=== PATIENT | female | born 1980 | race African-American/Black ===

== ENCOUNTER 2018-07-08 06:51 | Emergency (ER) | payer OTHER ==
[2018-07-08 07:03] VITALS: BP 116/73; PULSE 92; TEMP 97.4; BMI 41.1
[2018-07-08] MEDS ORDERED: MECLIZINE HCL 25 MG TABLET (FP) PO ONE (07:21)
[2018-07-08] MEDS ORDERED: SODIUM CHLORIDE 1,000 ML IV STA (07:21)
[2018-07-08] MEDS ORDERED: MECLIZINE HCL 25 MG TABLET (FP) ONE (07:30)
--- NOTE | 2018-07-08 08:53 | PDOC ---
History of Present Illness - General Chief Complaint: Nausea/Vomiting Stated Complaint: N/V/D Time Seen by Provider: 07/08/18 07:20 - History of Present Illness Initial Comments: 07/08/18 09:03 Chief complaint: Dizziness History of present illness: Patient awoke this morning with dizziness described as a spinning sensation, aggravated by movement, and accompanied by nausea and one episode of vomiting. Review of systems: No fever/chills, recent URI symptoms, headache, earache, tinnitus, or decreased hearing, chest pain, shortness of breath, abdominal pain , hematemesis, melena, bloody stool, visual or focal neurologic symptoms, unsteadiness of gait Past medical history: Healthy female, no medical or surgical problems, no medications Social history: No tobacco alcohol or drugs. 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 Denies , has an IUD, no menses. Family history: Reviewed and noncontributory including early coronary artery disease, metabolic disease including diabetes, stroke, PVD, lung disease Physical exam: Alert and oriented well-developed well-nourished moderate distress due to vertigo and nausea Afebrile, vital signs normal PERRLA 4 mm, fundi benign with sharp disc margins and good central venous pulsations. ENT clear. Neck supple without bruit mass or nodes Lungs clear, full breath sounds bilaterally, no wheezes rales or rhonchi CV S1 and S2 normal without murmur rub or gallop pulses full and symmetric no JVD or edema no bruits regular rate. No tachycardia Abdomen soft nontender without mass or organomegaly. Bowel sounds normal. Nondistended Extremities no CCE Skin clear, no rash, adequate turgor and wet mucous membranes Neurological C2 to 12 intact. Strength full and symmetric. No focal sensory or motor deficits. Cerebellum intact. Gait stable and unimpaired. Vertigo can be reproduced with rapid head movement and other change of positions. Impression: Acute viral labyrinthitis. No evidence of CVA Plan: Symptomatic treatment, rest, observation, and follow-up. Past History - Past Medical History Allergies/Adverse Reactions: Allergies Allergy/AdvReac Type Severity Reaction Status Date / Time No Known Allergies Allergy Verified 09/26/11 10:54 Home Medications: Ambulatory Orders Meclizine HCl 25 - 50 mg PO TID PRN #20 tab.[email or web address] 07/08/18 Asthma: No COPD: No Diabetes: No HTN: No Hypercholesterolemia: No - Suicide/Smoking/Psychosocial Hx Smoking Status: No Smoking History: Unknown if ever smoked Have you smoked in the past 12 months: No Number of Cigarettes Smoked Daily: 0 Information on smoking cessation initiated: No Hx Alcohol Use: No Drug/Substance Use Hx: No Substance Use Type: None *Physical Exam - Vital Signs Last Vital Signs Temp Pulse Resp BP Pulse Ox 97.4 F L 92 H 14 116/73 100 07/08/18 06:55 07/08/18 06:55 07/08/18 06:55 07/08/18 06:55 07/08/18 06:55 ED Treatment Course - Medications Given in the ED: ED Medications Discontinued Medications Generic Name Dose Route Start Last Admin Trade Name Freq PRN Reason Stop Dose Admin Sodium Chloride 1,000 mls @ 1,000 mls/hr 07/08/18 07:21 07/08/18 07:36 Normal Saline - IV 07/08/18 08:20 1,000 mls/hr ASDIR STA Administration Meclizine HCl 25 mg 07/08/18 07:21 07/08/18 07:35 Antivert - PO 07/08/18 07:22 25 mg ONCE ONE Administration Medical Decision Making - Medical Decision Making 07/08/18 09:08 Patient is much improved after the administration of 1 L of saline and meclizine. Symptoms have resolved. No further nausea or vomiting, and vertigo as well as resolved Patient will be maintained on meclizine, referred to primary physician for recheck in a few days, but also instructed to return to the ER if symptoms worsen or additional symptoms develop. Discharged in no distress with her mother to follow-up as directed *DC/Admit/Observation/Transfer Diagnosis at time of Disposition: Acute viral labyrinthitis Qualifiers: Laterality: unspecified laterality Qualified Code(s): H83.09 - Labyrinthitis, unspecified ear - Discharge Dispostion Disposition: HOME Condition at time of disposition: Improved Decision to Admit order: No - Prescriptions Prescriptions: Meclizine HCl 25 - 50 mg PO TID PRN #20 tab.[email or web address] PRN Reason: Vertigo - Referrals - Patient Instructions Printed Discharge Instructions: DI for Labyrinthitis Additional Instructions: Rest and fluids. Medication as directed. If symptoms worsen or additional symptoms develop, see primary physician or return to emergency room immediately for further evaluation. - Post Discharge Activity Forms/Work/School Notes: Back to Work
== END 2018-07-08 09:08 | disposition home or self-care (01) ==
LOC: FER 06:51
PROC: 3E0337Z Introduction of Electrolytic and Water Balance Substance into Peripheral Vein, Percutaneous Approach (ICD-10-PCS; principal; 2018-07-08)
DX: H83.09 Labyrinthitis, unspecified ear (principal)
CPT/HCPCS: 99283-25; J7030